=== PATIENT | male | born 1995 | race Caucasian/White ===

== ENCOUNTER 2021-10-23 11:00 | Emergency (ER) | payer OTHER, SELFPAY ==
--- NOTE | 2021-10-23 13:00 | RAD REPORT ---
EXAM DESCRIPTION: Tata Espinoza (2 Views)10/23/2021 12:48 pm CLINICAL HISTORY: Shortness of breath COMPARISON: 2010 FINDINGS: The lungs appear clear of acute infiltrate. The heart is normal size IMPRESSION: No acute abnormalities displayed
--- NOTE | 2021-10-23 13:10 | ER ---
Nurse's Notes [facility] Name: Matt Lewis Age: 26 yrs Sex: Male : 1995 Arrival Date: 10/23/2021 Time: 11:00 Bed 11 Private MD: Diagnosis: Chest pain on breathing Presentation: 10/23 11:18 Chief complaint: Patient states: right rib pain; feels like top of his lung isnt jh5 expanding denies trauma... pain when taking deep breath.. denies fever, chills, cough. Coronavirus screen: Vaccine status: Patient reports being unvaccinated. Client denies travel out of the [place] in the last 14 days. Ebola Screen: Patient negative for fever greater than or equal to 101.5 degrees Fahrenheit, and additional compatible Ebola Virus Disease symptoms Patient denies exposure to infectious person. Patient denies travel to an Ebola-affected area in the 21 days before illness onset. Initial Sepsis Screen: Does the patient meet any 2 criteria? No. Patient's initial sepsis screen is negative. Does the patient have a suspected source of infection? No. Patient's initial sepsis screen is negative. Risk Assessment: Do you want to hurt yourself or someone else? Patient reports no desire to harm self or others. Onset of symptoms was October 2021. 11:18 Method Of Arrival: Ambulatory [facility] 11:18 Acuity: LC 4 jh5 Triage Assessment: 11:21 General: Appears uncomfortable, slender, well groomed, well developed, Behavior is 5 calm, cooperative, appropriate for age. Pain: Complains of pain in right subscapular area and right mid back. Respiratory: Reports shortness of breath at rest on exertion Onset: The symptoms/episode began/occurred gradually, the patient has moderate shortness of breath. Historical: - Allergies: 11:21 No Known Allergies; 5 - Home Meds: 11:21 None [Active]; jh5 - PMHx: 11:21 None; jh5 - PSHx: 11:21 None; 5 - Immunization history:: Adult Immunizations up to date. - Social history:: Smoking status: Patient denies any tobacco usage or history of. Patient uses street drugs, marijuana. Screenin:23 Abuse screen: Denies threats or abuse. Denies injuries from another. Nutritional [facility] screening: No deficits noted. Tuberculosis screening: No symptoms or risk factors identified. Fall Risk None identified. Assessment: 11:23 Cardiovascular: No deficits noted. Respiratory: Airway is patent Respiratory effort is 5 even, unlabored, Breath sounds are clear. 11:24 Cardiovascular: Rhythm is. [facility] Vital Signs: 11:18 BP 127 / 81; Pulse 76; Resp 18; Temp 99.0(O); Pulse Ox 100% ; Weight 90.72 kg; Height 6 [facility] ft. 4 in. (193.04 cm); Pain 10/10; 11:18 Body Mass Index 24.34 (90.72 kg, 193.04 cm) [facility] ED Course: 11:00 Patient arrived in ED. am2 11:21 Triage completed. [facility] 11:21 Arm band placed on right wrist. [facility] 11:23 Cassy Geiger, RN is Primary Nurse. [facility] 11:23 Patient has correct armband on for positive identification. Adult w/ patient. [facility] 11:23 No provider procedures requiring assistance completed. [facility] 11:24 Norma Hamm FNP-C is PHCP. kb 11:24 Robin Garcia MD is Attending Physician. kb 12:48 Chest Pa And Lat (2 Views) XRAY In Process Unspecified. EDWV 13:16 Patient did not have IV access during this emergency room visit. ss Administered Medications: No medications were administered Outcome: 13:09 Discharge ordered by MD. kb 13:16 Discharged to home ambulatory. ss 13:16 Condition: good 13:16 Discharge instructions given to patient, family, Instructed on discharge instructions, follow up and referral plans. medication usage, Demonstrated understanding of instructions, follow-up care, medications, Prescriptions given X 2. 13:16 Patient left the ED. ss Signatures: Dispatcher [employer] EDMS Norma Hamm FNP-C FNP-Ckb Smirch, Shelby, RN RN ss Moreno, Amanda am2 Cassy Geiger, LAVERNE RN [facility]
--- NOTE | 2021-10-23 13:10 | EDPHYS ---
Physician Documentation [facility] Name: Matt Lewis Age: 26 yrs Sex: Male : 1995 Arrival Date: 10/23/2021 Time: 11:00 Bed 11 Private MD: ED Physician Robin Garcia HPI: 10/23 12:13 This 26 yrs old Male presents to ER via Ambulatory with complaints of Shortness Of kb Breath, lung pain. 12:13 The patient or guardian reports chest pain that is located primarily in the right kb lateral anterior chest. The pain does not radiate. Associated signs and symptoms: The patient has no apparent associated signs or symptoms. The chest pain is described as sharp. Duration: The patient or guardian reports a single episode, that is still ongoing. Modifying factors: The symptoms are alleviated by nothing. the symptoms are aggravated by deep breath. Severity of pain: At its worst the pain was moderate in the emergency department the pain is unchanged. The patient has not experienced similar symptoms in the past. The patient has not recently seen a physician. Pt reports pain to right lower lateral chest with deep breath that started 2 days ago. States he lifted a couch that day, but denies any injury or trauma. Historical: - Allergies: 11:21 No Known Allergies; [facility] - Home Meds: 11:21 None [Active]; 5 - PMHx: 11:21 None; 5 - PSHx: 11:21 None; [facility] - Immunization history:: Adult Immunizations up to date. - Social history:: Smoking status: Patient denies any tobacco usage or history of. Patient uses street drugs, marijuana. ROS: 12:11 Constitutional: Negative for fever, chills, and weight loss. kb 12:11 Cardiovascular: Positive for chest pain, of the right lateral anterior chest. 12:11 Respiratory: Positive for pleurisy. 12:11 All other systems are negative. Exam: 12:11 Constitutional: This is a well developed, well nourished patient who is awake, alert, kb and in no acute distress. Head/Face: Normocephalic, atraumatic. ENT: Moist Mucous membranes Chest/axilla: Normal chest wall appearance and motion. Cardiovascular: Regular rate and rhythm with a normal S1 and S2. No gallops, murmurs, or rubs. No pulse deficits. Respiratory: Respirations even and unlabored. No increased work of breathing. Talking in full sentences Skin: Warm, dry with normal turgor. Normal color. MS/ Extremity: Pulses equal, no cyanosis. Neurovascular intact. Full, normal range of motion. Neuro: Awake and alert, GCS 15, oriented to person, place, time, and situation. Moves all extremities. Normal gait. Psych: Awake, alert, with orientation to person, place and time. Behavior, mood, and affect are within normal limits. Vital Signs: 11:18 BP 127 / 81; Pulse 76; Resp 18; Temp 99.0(O); Pulse Ox 100% ; Weight 90.72 kg; Height 6 jh5 ft. 4 in. (193.04 cm); Pain 10; 11:18 Body Mass Index 24.34 (90.72 kg, 193.04 cm) jh5 MDM: 11:24 Patient medically screened. kb 12:10 Data reviewed: vital signs, nurses notes. Data interpreted: Pulse oximetry: on room air kb is 100 %. Interpretation: normal. 12:14 ED course: Pt denies radiation of pain. Pain reproduced when raising arm . kb 13:08 Counseling: I had a detailed discussion with the patient and/or guardian regarding: the kb historical points, exam findings, and any diagnostic results supporting the discharge/admit diagnosis, radiology results, the need for outpatient follow up, a family practitioner, to return to the emergency department if symptoms worsen or persist or if there are any questions or concerns that arise at home. 10/23 11:24 Order name: Chest Pa And Lat (2 Views) XRAY; Complete Time: 13:05 kb Administered Medications: No medications were administered Disposition: 15:00 Co-signature as Attending Physician, Robin Garcia MD. rn Disposition Summary: 10/23/21 13:09 Discharge Ordered Location: Home kb Condition: Stable kb Diagnosis - Chest pain on breathing kb Followup: kb - With: Emergency Department - When: As needed - Reason: Worsening of condition Followup: kb - With: Private Physician - When: 2 - 3 days - Reason: Recheck today's complaints, Continuance of care, Re-evaluation by your physician Discharge Instructions: - Discharge Summary Sheet kb - Costochondritis, [id number] kb - Chest Wall Pain, [id number] kb - Pleurisy, [id number] kb Forms: - Medication Reconciliation Form kb - Thank You Letter kb - Antibiotic Education kb - Prescription Opioid Use kb Prescriptions: - Cyclobenzaprine 10 mg Oral Tablet - take 1 tablet by ORAL route every 8 hours As needed; 21 tablet; Refills: 0, kb Product Selection Permitted - Diclofenac Sodium 75 mg Oral tablet,delayed release (DR/EC) - take 1 tablet by ORAL route 2 times per day As needed; 30 tablet; Refills: 0, kb Product Selection Permitted Signatures: Dispatcher [employer] Norma Ceballos, TYING MACHINE OPERATOR-C TYING MACHINE OPERATOR-Robin Mota MD MD rn JuanjoCassy RN RN jh5
[2021-10-23 13:27] VITALS: BP 127/81; TEMP 99; O2SAT 100
== END 2021-10-23 13:16 | disposition home or self-care (01) ==
LOC: ER 11:00
DX: R07.1 Chest pain on breathing (principal)
CPT/HCPCS: 71046; 99283